=== PATIENT | female | born 1965 | race African-American/Black ===

== ENCOUNTER 2019-10-06 19:46 | Emergency (ER) | payer MEDICAID, OTHER ==
[~2019-10-06] VITALS: Ht 160 cm; Wt 69.4 kg
[2019-10-06 20:04] VITALS: BP 157/90
[2019-10-06] MEDS ORDERED: KETOROLAC TROMETH 60MG/2ML VIAL IM ONE (23:00)
== END 2019-10-06 23:43 | disposition home or self-care (01) ==
LOC: ER 19:46 → EDBD 19:46 → ER 23:43
DX: S66.912A Strain of unspecified muscle, fascia and tendon at wrist and hand level, left hand, initial encounter (principal); S66.911A Strain of unspecified muscle, fascia and tendon at wrist and hand level, right hand, initial encounter; S19.80XA Other specified injuries of unspecified part of neck, initial encounter; Z88.0 Allergy status to penicillin; W18.39XA Other fall on same level, initial encounter; Y93.89 Activity, other specified; Y92.89 Other specified places as the place of occurrence of the external cause; Y99.8 Other external cause status
CPT/HCPCS: 70450; 72125; 73110; 96372; 99285; J1885